=== PATIENT | male | born 1950 | race Caucasian/White ===

== ENCOUNTER 2022-09-19 13:25 | Inpatient (IN) | payer MEDICARE, SELFPAY ==
[2022-09-19] VITALS (16 sets, daily range): BP systolic 102–151; BP diastolic 61–94; PULSE 103–117; RESP 20–33; TEMP 35.7–36.8; O2SAT 93–97; BMI 32.1
--- NOTE | 2022-09-19 13:31 | ED.VIS.CHEST ---
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 He called EMS given the persistence of symptoms, when they arrived they did an EKG that they sent prehospital which was interpreted by myself as a STEMI, and an alert was called prior to the patient's arrival. EMS gave him 4 baby aspirin, Brilinta 180 mg, heparin 4000 mg prior to arrival as well as some IV fluids and Zofran. Patient states his discomfort is still significant, but a little better than it was earlier. No history of heart problems, does not take aspirin. He takes Dupixent but he does not know the diagnosis, he knows it has something to do with his kidneys. [facility] Medical History (Updated 09/19/22 @ 16:[address] Luiz Ma DO) CKD (chronic kidney disease), stage II High cholesterol Kidney disease Allergy/AdvReac Type Severity Reaction Status Date / Time cefaclor [From Ceclor] Allergy Other Verified 09/19/22 13:31 Family History (Updated 09/19/22 @ 16:[address] Luiz Ma DO) Father CAD (coronary artery disease) CVA (cerebral vascular accident) Social History (Updated 09/19/22 @ 16:[address] Liuz Ma DO) Smoking Status: Never smoker alcohol intake: current alcohol intake frequency: holidays/special occasions only substance use type: does not use ROS ROS ED Constitutional Constitutional ED: Reports sweats; Denies chills or fever(s) Eyes Eyes: Denies change in vision or diplopia ENT ENT ED: Denies rhinorrhea or sore throat Cardiovascular Cardiovascular: Reports as per HPI and chest pain; Denies palpitations Respiratory/Chest Respiratory/Chest: Reports dyspnea; Denies cough Gastrointestinal Gastrointestinal: Reports nausea; Denies abdominal pain, diarrhea or vomiting Genitourinary Genitourinary ED: Denies dysuria or hematuria Musculoskeletal Musculoskeletal: Reports neck pain; Denies back pain Integumentary Denies abscess or rash Neurologic Neurologic: Denies headache(s), paresthesias or weakness Psychiatric Psychiatric: Denies anxiety or suicidal thoughts EXAM Physical Exam Const Vital Signs: 09/19/22 13:26 09/19/22 13:31 09/19/22 13:34 Temperature 96.2 F L Temperature Source Temporal Pulse Rate Respiratory Rate 29 H Respiratory Pattern Normal Blood Pressure 151/94 H Blood Pressure Mean Blood Pressure Source Blood Pressure Position Blood Pressure Location Pulse Ox Oxygen Delivery Method 09/19/22 13:34 09/19/22 13:56 09/19/22 13:48 Temperature 97.1 F L Temperature Source Temporal Pulse Rate 113 H 113 H 113 H Respiratory Rate 21 H 24 H Respiratory Pattern Blood Pressure 147/94 H 147/94 H Blood Pressure Mean 111 111 Blood Pressure Source Blood Pressure Position Blood Pressure Location Pulse Ox Oxygen Delivery Method Room Air 09/19/22 15:28 Temperature Temperature Source Pulse Rate 109 H Respiratory Rate 20 H Respiratory Pattern Blood Pressure 127/87 H Blood Pressure Mean 100 Blood Pressure Source Monitor Blood Pressure Position Semi-Fowlers Blood Pressure Location Left Arm Pulse Ox 94 Oxygen Delivery Method Room Air Positive well nourished and well developed Constitutional Narrative: Well-appearing, conversive in full sentences General Appearance ED: well developed and NAD HEENT Reports moist mucous membranes normocephalic and atraumatic Eyes PERRL and EOMs intact bilaterally Neck full ROM and supple Chest Wall inspection of chest normal and palpation of chest normal Resp normal respiratory effort and clear to auscultation bilaterally Cardio regular rate, regular rhythm and no murmurs Rate: tachycardic Peripheral Pulses: radial pulses present bilateral 2+ GI non-tender and non-distended Auscultation: normoactive bowel sounds Palpation: soft Back/Spine no CVA tenderness General Back: other FROM Extremity normal to inspection General Extremety ED: Negative for edema, pulses abnormal or tenderness General Extremity: Negative for edema or pulses abnormal Neuro oriented x3, CN's II-XII intact bilaterally and no sensory deficits noted Sensorium / Orientation: awake and alert Motor Exam: strength 5/5 throughout Psych mental status grossly normal Skin no rashes or lesions noted and no wounds Heart Score History: Highly Suspicious ECG: Significant ST-Depression Age: >/= 65 years Risk Factors: 1 or 2 Risk Factors Troponin: </= Normal Limit Score: 7 MDM MDM MDM Narrative Medical decision making narrative: Discussed with Dr. Flores, who agrees given the patient's symptoms, will take directly to [facility] for further evaluation. Patient clinically and hemodynamically stable in the emergency department although his symptoms are significant. We will give him morphine for the pain and continue fluids. Lab Data Attestation: I reviewed the patient's lab results. Labs: Laboratory Results - last 24 hr 09/19/22 09/19/22 13:25 13:25 WBC 10.1 RBC 4.96 Hgb 13.6 Hct 41.4 MCV 83.5 MCH 27.4 MCHC 32.9 RDW Std Deviation 42.5 RDW Coeff of Goldie 14.1 Plt Count 209 MPV 9.5 Immature Gran % (Auto) 0.300 Neut % (Auto) 79.9 H Lymph % (Auto) 13.0 L [place] % (Auto) 6.1 Eos % (Auto) 0.4 Baso % (Auto) 0.3 Absolute Neuts (auto) 8.1 H Absolute Lymphs (auto) 1.32 Nucleated RBC % 0 Sodium 136 Potassium 3.8 Chloride 102 Carbon Dioxide 27.0 Anion Gap 7 BUN 21 H Creatinine 1.12 Estim Creat Clear Calc 53.39 Est GFR (MDRD) Af Amer 83 Est GFR (MDRD) Non-Af 69 BUN/Creatinine Ratio 18.8 Glucose 172 H Calcium 8.6 Troponin I High Sens 5 Radiography Chest X-Ray - ED: 1 View, Read by ED Physician, Normal, Heart, Lungs, Mediastinum, No Acute Disease and No Infiltrates Diagnostic Testing: Clinical Impression(s) from Imaging Studies Chest X-Ray 09/19/22 13:40 IMPRESSION: No acute cardiopulmonary process identified. Electronically Signed: Alayna Palacios MD at 13:57 EST , Chest X-Ray 09/19/22 15:25 IMPRESSION: No acute cardiopulmonary abnormality. No interval change. Electronically Signed: Nolberto Morales MD at 15:58 EST , Rhythm Strip Rhythm Strip: Sinus Tach Rate: 110 Ectopy: None EKG Initial EKG: Attestation: I personally reviewed and interpreted this EKG as follows: Interpretation: Sinus Tachycardia and S-T Elevation (Inferiorly) Comments: Unchanged compared with prehospital, but limited evaluation of V5-V6 here due to artifact Critical Care Time Critical Care Time: Yes Critical care time (excluding procedures): 30-74 minutes (35 min), Including time spent:, Discussing w/Patient &/or Family/Reconstructive Surgeon, Discussing w/Consultants, Arranging Admission or Transfer and Performing Direct Patient Care at Bedside Discharge Plan Dx/Rx/DC Orders Clinical Impression: ST elevation myocardial infarction (STEMI) of inferior wall Disposition Disposition: Acute Care Hospital [facility] Discharge Date/Time: 09/19/22 14:00
--- NOTE | 2022-09-19 13:40 | RAD_ITS ---
HISTORY: cp. TECHNIQUE: XR Chest 1 View. COMPARISON: None. FINDINGS: CARDIOMEDIASTINAL BORDERS: Cardiac silhouette within normal limits in size for hypoventilatory film. Mediastinal contour unremarkable. LUNGS: Low lung volumes with mild bibasilar atelectasis. Pacer pad over the right chest. PLEURA: No pleural effusion or pneumothorax seen. OSSEOUS STRUCTURES: Mild degenerative change. RAD/Chest 1 View (Portable) IMPRESSION: No acute cardiopulmonary process identified. Electronically Signed: Alayna Palacios MD at 13:57 EST ,
[2022-09-19] MEDS: Morphine 4 MG/ML Syringe IV (13:47)
--- NOTE | 2022-09-19 13:47 | EKG12_ITS ---
Test Reason : STEMI Blood Pressure : / mmHG Vent. Rate : 113 BPM Atrial Rate : 113 BPM P-R Int : 192 ms QRS Dur : 078 ms QT Int : 328 ms P-R-T Axes : 000 187 125 degrees QTc Int : 449 ms Sinus tachycardia Right superior axis deviation Abnormal ECG Confirmed by KATIE MANNING, ISHMAEL ([id number]), assignment editor ROBINA ANDINO ([id number]) on 09/23/2022 11:52:25 AM Referred By: Mitzy Flores Confirmed By:ISHMAEL WILSON MD
[2022-09-19 13:53] LABS: Absolute Lymphocyte Count 1.32 X10^3/uL (0.83-4.51); Absolute Neutrophil Count 8.1 X10^3/uL (2.0-7.7); Basophil# 0.03 X10^3/uL; Basophil% 0.3 % (0-1); Eosinophil# 0.04 X10^3/uL; Eosinophils% 0.4 % (0-5); Hematocrit 41.4 % (40-54); Hemoglobin 13.6 g/dL (13.0-16.5); Lymphocyte # 1.32 X10^3/ul (0.83-4.51); Mean Corp Hgb Conc 32.9 g/dL (32-36); Mean Corpuscular Hgb 27.4 pg (27.0-32.0); Mean Corpuscular Volume 83.5 fL (80-94); Mean Platelet Vol. 9.5 fl (6.2-12.0); Monocyte# 0.62 X10^3/uL; Monocyte% 6.1 % (0-10); NRBC Flagged by Analyzer 0 % (0-5); Neutrophil % 79.9 % (47-70); Platelet Count 209 K/mm3 (150-450); RBC Distribution Width CV 14.1 % (11.6-14.6); RBC Distribution Width SD 42.5 fl (35.1-43.9); Red Blood Count 4.96 M/mm3 (4.6-6.2); White Blood Count 10.1 K/mm3 (4.4-11.0)
[2022-09-19 14:07] LABS: Anion Gap 7 (5-15); BUN 21 mg/dL (7-18); BUN/Creat Ratio 18.8 RATIO (10-20); Calcium,Total 8.6 mg/dL (8.5-10.1); Chloride 102 mmol/L (98-107); Creatinine, Serum 1.12 mg/dL (0.70-1.30); EST Glomerular Filtration Rate 69 mL/min (>60); Est Glom Filt Rate - Afr Amer 83 mL/min (>60); Estimated Creatinine Clearance 53.39 ml/min; Glucose 172 mg/dL (74-106); Potassium 3.8 mmol/L (3.5-5.1); Sodium Level 136 mmol/L (136-145); Troponin-I HS 5 pg/mL (3.0-78.0)
--- NOTE | 2022-09-19 15:08 | CON.PCM.CA_ITS ---
Assessment & Plan Assessment/Plan (1) Chest pain: PLAN: Coronary angiography revealed mild CAD. Based on the EKG changes, chest pain and the angiographic findings it appears that patient is having acute pericarditis. Would recommend NSAIDs and also colchicine. 2D echo tomorrow. HPI Consult Data Date of Consult: 09/19/22 HPI Narrative HPI Narrative: ZIGGY AG, is a 72 M who presents with chest discomfort. It initially apparently started as some neck discomfort around 2-3 AM this morning and then he started having chest discomfort which is pressure-like and retrosternal. Thi s was not going away and eventually he called EMS. Patient does have worsening of chest pain with deep inspiration. EKG done by the paramedics was suspicious for inferior and lateral ST elevation TN. There was MA depression in inferior leads and MA elevation in aVR that was suggestive of pericarditis as well. However since inferior and lateral ST elevation TN could not be completely excluded and since patient was having significant pain he underwent coronary angiography which revealed mild CAD. EF was preserved with no significant regional wall motion abnormalities. Review of systems: All systems reviewed. All else is negative except as in HPI [facility] Medical History (Updated 09/19/22 @ 15:[address] Mitzy Flores MD) High cholesterol Allergy/AdvReac Type Severity Reaction Status Date / Time cefaclor [From Ceclor] Allergy Other Verified 09/19/22 13:31 Social History Smoking Status: Never smoker Physical Exam Const alert and oriented x3 HEENT normocephalic Eyes no scleral icterus Resp normal respiratory effort Cardio regular rate and regular rhythm Psych mental status grossly normal Risk Stratification Risk Stratification Applicable: No Charges/Coding Visit Charges Inpatient E&M: 46125 Init Hosp L2 Objective Data Vital Signs: Vital Signs Temp Pulse Resp BP O2 Del Method 97.1 F L 113 H 21 H 147/94 H Room Air 09/19/22 13:56 09/19/22 13:56 09/19/22 13:56 09/19/22 13:56 09/19/22 13:48 Oxygen Delivery Method Room Air Weight: 193 lb 1.999 oz Body Mass Index (BMI) 32.1 Lab / Micro Data Result Diagrams: 09/19/22 13:25 09/19/22 13:25 Labs: Laboratory Results - last 24 hr 09/19/22 13:25: WBC 10.1, RBC 4.96, Hgb 13.6, Hct 41.4, MCV 83.5, MCH 27.4, MCHC 32.9, RDW Std Deviation 42.5, RDW Coeff of Goldie 14.1, Plt Count 209, MPV 9.5, Immature Gran % (Auto) 0.300, Neut % (Auto) 79.9 H, Lymph % (Auto) 13.0 L, [place] % (Auto) 6.1, Eos % (Auto) 0.4, Baso % (Auto) 0.3, Absolute Neuts (auto) 8.1 H, Absolute Lymphs (auto) 1.32, Nucleated RBC % 0 09/19/22 13:25: Sodium 136, Potassium 3.8, Chloride 102, Carbon Dioxide 27.0, Anion Gap 7, BUN 21 H, Creatinine 1.12, Estim Creat Clear Calc 53.39, Est GFR (MDRD) Af Amer 83, Est GFR (MDRD) Non-Af 69, BUN/Creatinine Ratio 18.8, Glucose 172 H, Calcium 8.6, Troponin I High Sens 5 Rhythm Strip Rhythm Strip: Sinus Tach Rate: 110 Ectopy: None Cardiology Labs/Tests 09/19/22 13:25: WBC 10.1, RBC 4.96, Hgb 13.6, Hct 41.4, MCV 83.5, MCH 27.4, MCHC 32.9, Plt Count 209, MPV 9.5, Immature Gran % (Auto) 0.300, Neut % (Auto) 79.9 H , Lymph % (Auto) 13.0 L, [place] % (Auto) 6.1, Eos % (Auto) 0.4, Baso % (Auto) 0.3, Absolute Neuts (auto) 8.1 H, Nucleated RBC % 0 09/19/22 13:25: Sodium 136, Potassium 3.8, Chloride 102, Carbon Dioxide 27.0, Anion Gap 7, BUN 21 H, Creatinine 1.12, Est GFR (MDRD) Af Amer 83, Est GFR (MDRD) Non-Af 69, BUN/Creatinine Ratio 18.8, Glucose 172 H, Calcium 8.6 Rhythm: EKG: ECHO: Stress Test: Cardiac Cath: PCI: CT Surgery: Holter monitor: EPS: PPM: CXR: Chest CT Scan: Radiography Diagnostic Testing: Radiology Impression Chest X-Ray 09/19/22 13:40 IMPRESSION: No acute cardiopulmonary process identified. Electronically Signed: Alayna Palacios MD at 13:57 EST ,
--- NOTE | 2022-09-19 15:25 | RAD_ITS ---
EXAM: XR CHEST, 1 VIEW CLINICAL INDICATION: sob TECHNIQUE: Frontal view of the chest. This report was created using [employer] report generation technology. COMPARISON: XR Chest dated 09/19/2022 FINDINGS: LUNGS AND PLEURAL SPACES: Shallow inspiration. No airspace opacification. No pneumothorax. No effusion. HEART: Normal heart size. MEDIASTINUM: No mediastinal or hilar mass. BONES/JOINTS: No acute abnormality. SOFT TISSUES: Normal. RAD/Chest 1 View (Portable) IMPRESSION: No acute cardiopulmonary abnormality. No interval change. Electronically Signed: Nolberto Morales MD at 15:58 EST ,
--- NOTE | 2022-09-19 16:13 | PCM.HP.STD ---
HPI - General General Date of Admission: 09/19/22 Date of Service: 09/19/22 HPI Narrative ZIGGY AG, is a 72 M who presents chest pain. Symptoms began around 3 AM. It was midsternal. Just got worse throughout the day. Worse with taking in deep respirations. Presented to the emergency room and had what appeared to be ST elevations in the inferior leads. STEMI team was called. Patient did receive heparin, aspirin and Brilinta in the field. Patient went to the [facility] and had some minimal right coronary disease but nothing that warranted intervention. During the procedure the wire got tied up and required going through the groin to retrieve it. No clear complications were identified but Dr. Flores want to observe the patient in the intensive care unit in case any complications were latent and not immediately seen. [facility] Medical History (Updated 09/19/22 @ 16:[address] Luiz Ma DO) CKD (chronic kidney disease), stage II High cholesterol Kidney disease Allergy/AdvReac Type Severity Reaction Status Date / Time cefaclor [From Ceclor] Allergy Other Verified 09/19/22 13:31 Family History (Updated 09/19/22 @ 16:[address] Luiz Ma DO) Father CAD (coronary artery disease) CVA (cerebral vascular accident) Social History (Updated 09/19/22 @ 16:[address] Luiz Ma DO) Smoking Status: Never smoker alcohol intake: current alcohol intake frequency: holidays/special occasions only substance use type: does not use ROS ROS Narrative Neck was initially stiff preceding this. But denies any recent upper respiratory infection nor any fever or chills. No shortness of breath. All review of systems were negative except as mentioned above in the history of present illness and the other review of systems. Vital Signs Vital Signs Vital Signs: 09/19/22 13:26 09/19/22 13:31 09/19/22 13:34 Temperature 35.7 C L Temperature Source Temporal Pulse Rate Respiratory Rate 29 H Respiratory Pattern Normal Blood Pressure 151/94 H Blood Pressure Mean Oxygen Delivery Method 09/19/22 13:34 09/19/22 13:56 09/19/22 13:48 Temperature 36.2 C L Temperature Source Temporal Pulse Rate 113 H 113 H 113 H Respiratory Rate 21 H 24 H Respiratory Pattern Blood Pressure 147/94 H 147/94 H Blood Pressure Mean 111 111 Oxygen Delivery Method Room Air Weight Weight: 87.6 kg Body Mass Index (BMI) 32.1 Physical Exam Const alert Constitutional Narrative: Lying in bed. Take short shallow breaths because his chest hurts. No respiratory distress no conversational dyspnea Resp normal respiratory effort, no retractions, no use of accessory muscles and clear to auscultation bilaterally Cardio regular rate, regular rhythm, S1 normal heart sound and S2 normal heart sound Cardio Narrative: Diminished heart sounds throughout GI normal to inspection, nondistended, normoactive bowel sounds, soft to palpation, non-tender and non-distended Extremity normal to inspection and no clubbing, cyanosis or edema Extremity Narrative: Radial and dorsalis pedal pulses intact. Neuro Sensorium / Orientation: awake and alert Psych Mood & Affect: anxious Results Lab / Micro Data Attestation: I reviewed the patient's lab results. Result Diagrams: 09/19/22 13:25 09/19/22 13:25 Labs: Laboratory Results - last 24 hr 09/19/22 13:25: WBC 10.1, RBC 4.96, Hgb 13.6, Hct 41.4, MCV 83.5, MCH 27.4, MCHC 32.9, RDW Std Deviation 42.5, RDW Coeff of Goldie 14.1, Plt Count 209, MPV 9.5, Immature Gran % (Auto) 0.300, Neut % (Auto) 79.9 H, Lymph % (Auto) 13.0 L, [place] % (Auto) 6.1, Eos % (Auto) 0.4, Baso % (Auto) 0.3, Absolute Neuts (auto) 8.1 H, Absolute Lymphs (auto) 1.32, Nucleated RBC % 0 09/19/22 13:25: Sodium 136, Potassium 3.8, Chloride 102, Carbon Dioxide 27.0, Anion Gap 7, BUN 21 H, Creatinine 1.12, Estim Creat Clear Calc 53.39, Est GFR (MDRD) Af Amer 83, Est GFR (MDRD) Non-Af 69, BUN/Creatinine Ratio 18.8, Glucose 172 H, Calcium 8.6, Troponin I High Sens 5 Chest x-ray personally reviewed and showed no acute process, though poor inspiratory effort Rhythm Strip Rhythm Strip: Sinus Tach Rate: 110 Ectopy: None EKG Initial EKG: Attestation: I personally reviewed and interpreted this EKG as follows: Prior EKG tracings: available for review EKG Rhythm Intrepretation: Sinus Rhythm (Small ST elevation in the inferior leads with NC depressions) Radiology Impression Chest X-Ray 09/19/22 13:40 IMPRESSION: No acute cardiopulmonary process identified. Electronically Signed: Alayna Palacios MD at 13:57 EST , Chest X-Ray 09/19/22 15:25 IMPRESSION: No acute cardiopulmonary abnormality. No interval change. Electronically Signed: Nolberto Morales MD at 15:58 EST , Assessment & Plan Assessment/Plan (1) Pericarditis: PLAN: Cardiac catheterization was negative for coronary artery disease though minimal nonobstructive disease in the right coronary. Plan Start NSAIDs with ketorolac Starts colchicine 1 mg twice daily for the first 2 doses and then 0.6 mg twice daily Check echocardiogram With patient having just received IV contrast, will also give the patient IV fluids (2) Cardiac catheterization as the cause of abnormal reaction of the patient, or of later complication, without mention of misadventure at the time of the procedure: PLAN: Unclear if patient will have any issues in regards to having been access in his right radial and right femoral arteries. The catheter wire got tied up and then had to be pulled back with device. Patient tolerated that well and currently is hemodynamically stable. Patient to be monitored in the intensive care unit for the time being PLAN: Plan Chronic conditions Questionable psoriasis: Patient has pruritus on his back which she has been started on Dupixent. We will hold that for now. Chronic kidney disease stage II: Monitor closely with him having just had the contrast as well as being started on NSAIDs VTE prophylaxis with SCDs. Charges/Coding Visit Charges Inpatient E&M: 81860 Init Hosp L3
--- NOTE | 2022-09-19 16:17 | ECHOD_ITS ---
Reason For Study: Pericarditis Procedure This was a 2D Doppler, Color Flow transthoracic echocardiogram. Exam performed portable in ICU/CCU. Left Ventricle Normal LV size. Left ventricular systolic function is normal. The estimated ejection fraction is 60 %. No regional wall motion abnormalities noted. Right Ventricle Normal RV size. Normal systolic function. Atria Normal left atrium. Normal right atrium. Mitral Valve Normal mitral valve. Tricuspid Valve Normal tricuspid valve. Mild tricuspid valve insufficiency. Pulmonary artery systolic pressure is 30 mmHg. Aortic Valve The aortic valve is not well visualized. Pulmonic Valve The pulmonic valve is not well visualized. Great Vessels Normal aortic root. The pulmonary artery is normal size. Normal inferior vena cava. Pericardium/Pleural No pericardial effusion. MMode/2D Measurements & Calculations LVIDd: 4.4 cm IVSd: 1.0 cm Ao root diam: 3.3 cm LVIDs: 2.7 cm LVPWd: 0.93 cm RVDd: 3.5 cm FS: 38.9 % LAV(MOD-bp): 34.3 ml LVAd ap4: 24.5 cm2 SV(MOD-sp4): 37.2 ml LAV(MOD-bp) Indexed: 17.6 ml/m2 LVLd ap4: 8.1 cm LAV(MOD-sp2): 39.2 ml EDV(MOD-sp4): 60.8 ml LAV(MOD-sp4): 25.8 ml EDV(sp4-el): 63.1 ml LVAs ap4: 13.2 cm2 LVLs ap4: 6.2 cm ESV(MOD-sp4): 23.6 ml ESV(sp4-el): 24.1 ml EF(MOD-sp4): 61.2 % EF(sp4-el): 61.7 % SV(sp4-el): 38.9 ml LA A4 area: 11.7 cm2 LA dimension(2D): 4.4 cm RA A4 area: 9.3 cm2 Doppler Measurements & Calculations MV E max all: 82.9 cm/sec Lat Peak E' All: 7.7 cm/sec Med Peak E' All: 6.0 cm/sec MV A max all: 80.4 cm/sec E/E' lat: 10.8 E/E' med: 13.9 MV E/A: 1.0 Ao V2 max: 102.0 cm/sec LV V1 max: 97.3 cm/sec PA V2 max: 74.5 cm/sec Ao max P.2 mmHg LV V1 max P.8 mmHg Ao V2 mean: 78.6 cm/sec Ao mean P.7 mmHg Ao V2 VTI: 22.9 cm PI end-d all: 89.8 cm/sec TR max all: 251.2 cm/sec TR max P.2 mmHg ECHO/Echo Complete Interpretation Summary Normal LV size. Left ventricular systolic function is normal. The estimated ejection fraction is 60 %. No regional wall motion abnormalities noted. No pericardial effusion. Ordering Physician: Luiz Ma Referring Physician: Damian Hardy Performed By: Jessica Jones, ASHLEY, RVT
[2022-09-19] MEDS: Ketorolac 15 MG/ML Vial IV ×2 (17:15→23:40)
[2022-09-19] MEDS: 0.9% Normal Saline 1,000 ML 150 ML IV (17:15)
[2022-09-19] MEDS: Colchicine 0.6 MG TABLET 1.2 MG PO ×2 (17:16→21:38)
[2022-09-19] MEDS: oxyCODONE 5 MG Tablet PO (20:16)
[2022-09-19] MEDS: Acetaminophen 500 MG Tablet 1000 MG PO (21:38)
[2022-09-20] VITALS (16 sets, daily range): BP systolic 92–122; BP diastolic 61–74; PULSE 74–99; RESP 12–22; TEMP 35.9–36.6; O2SAT 93–98
[2022-09-20 03:24] LABS: Absolute Lymphocyte Count 1.22 X10^3/uL (0.83-4.51); Absolute Neutrophil Count 5.4 X10^3/uL (2.0-7.7); Basophil# 0.02 X10^3/uL; Basophil% 0.3 % (0-1); Eosinophil# 0.06 X10^3/uL; Eosinophils% 0.8 % (0-5); Hematocrit 34.2 % (40-54); Hemoglobin 11.6 g/dL (13.0-16.5); Lymphocyte # 1.22 X10^3/ul (0.83-4.51); Lymphocyte % 16.9 % (19-41); Mean Corp Hgb Conc 33.9 g/dL (32-36); Mean Corpuscular Volume 85.5 fL (80-94); Mean Platelet Vol. 9.1 fl (6.2-12.0); Monocyte# 0.53 X10^3/uL; Monocyte% 7.3 % (0-10); NRBC Flagged by Analyzer 0 % (0-5); Neutrophil # 5.37 X10^3/uL (2.7-7.7); Neutrophil % 74.4 % (47-70); Platelet Count 156 K/mm3 (150-450); RBC Distribution Width CV 14.4 % (11.6-14.6); RBC Distribution Width SD 44.7 fl (35.1-43.9); White Blood Count 7.2 K/mm3 (4.4-11.0)
[2022-09-20 03:33] LABS: Anion Gap 5 (5-15); BUN 24 mg/dL (7-18); BUN/Creat Ratio 18.8 RATIO (10-20); Calcium,Total 7.6 mg/dL (8.5-10.1); Chloride 107 mmol/L (98-107); Creatinine, Serum 1.28 mg/dL (0.70-1.30); EST Glomerular Filtration Rate 59 mL/min (>60); Est Glom Filt Rate - Afr Amer 71 mL/min (>60); Estimated Creatinine Clearance 46.71 ml/min; Glucose 172 mg/dL (74-106); Potassium 3.6 mmol/L (3.5-5.1); Sodium Level 137 mmol/L (136-145)
[2022-09-20] MEDS: Acetaminophen 500 MG Tablet 1000 MG PO ×2 (06:18→12:43)
[2022-09-20] MEDS: Ketorolac 15 MG/ML Vial IV ×2 (06:18→10:10)
--- NOTE | 2022-09-20 07:05 | PN.HOSP_ITS ---
Subjective Subjective Chest pain much improved. Objective Data Objective Data Vital Signs: Vital Signs Temp Pulse Resp BP Pulse Ox O2 Del Method 36.2 C L 79 17 97/63 97 Room Air 09/20/22 04:00 09/20/22 06:00 09/20/22 06:00 09/20/22 06:00 09/20/22 06:00 09/20/22 06:00 Oxygen Delivery Method Room Air Weight: 86.7 kg Body Mass Index (BMI) 32.1 Intake & Output: Intake and Output for Last 24 Hours 09/18/22 09/19/22 09/20/22 23:59 23:59 23:59 Intake Total 1860 / 1860 Output Total 0 / 0 Balance 186 / 186 0 / 0 Lab / Micro Data Result Diagrams: 09/20/22 03:10 09/20/22 03:10 Labs: Laboratory Results - last 24 hr 09/19/22 13:25: WBC 10.1, RBC 4.96, Hgb 13.6, Hct 41.4, MCV 83.5, MCH 27.4, MCHC 32.9, RDW Std Deviation 42.5, RDW Coeff of Goldie 14.1, Plt Count 209, MPV 9.5, Immature Gran % (Auto) 0.300, Neut % (Auto) 79.9 H, Lymph % (Auto) 13.0 L, [place] % (Auto) 6.1, Eos % (Auto) 0.4, Baso % (Auto) 0.3, Absolute Neuts (auto) 8.1 H, Absolute Lymphs (auto) 1.32, Nucleated RBC % 0 09/19/22 13:25: Sodium 136, Potassium 3.8, Chloride 102, Carbon Dioxide 27.0, Anion Gap 7, BUN 21 H, Creatinine 1.12, Estim Creat Clear Calc 53.39, Est GFR (MDRD) Af Amer 83, Est GFR (MDRD) Non-Af 69, BUN/Creatinine Ratio 18.8, Glucose 172 H, Calcium 8.6, Troponin I High Sens 5 09/20/22 03:10: WBC 7.2, RBC 4.00 L, Hgb 11.6 L, Hct 34.2 L, MCV 85.5, MCH 29.0, MCHC 33.9, RDW Std Deviation 44.7 H, RDW Coeff of Goldie 14.4, Plt Count 156, MPV 9.1, Immature Gran % (Auto) 0.300, Neut % (Auto) 74.4 H, Lymph % (Auto) 16.9 L, [place] % (Auto) 7.3, Eos % (Auto) 0.8, Baso % (Auto) 0.3, Absolute Neuts (auto) 5.4, Absolute Lymphs (auto) 1.22, Nucleated RBC % 0 09/20/22 03:10: Sodium 137, Potassium 3.6, Chloride 107, Carbon Dioxide 25.0, Anion Gap 5, BUN 24 H, Creatinine 1.28, Estim Creat Clear Calc 46.71, Est GFR (MDRD) Af Amer 71, Est GFR (MDRD) Non-Af 59 L, BUN/Creatinine Ratio 18.8, Glucose 172 H, Calcium 7.6 L Radiography Diagnostic Testing: Radiology Impression Chest X-Ray 09/19/22 13:40 IMPRESSION: No acute cardiopulmonary process identified. Electronically Signed: Alayna Palacios MD at 13:57 EST , Chest X-Ray 09/19/22 15:25 IMPRESSION: No acute cardiopulmonary abnormality. No interval change. Electronically Signed: Nolberto Morales MD at 15:58 EST , Rhythm Strip Rhythm Strip: Sinus Tach Rate: 110 Ectopy: None Physical Exam Const alert and no apparent distress Resp normal respiratory effort, no retractions, no use of accessory muscles and clear to auscultation bilaterally Cardio regular rate, regular rhythm, S1 normal heart sound and S2 normal heart sound Assessment & Plan Assessment/Plan (1) Pericarditis: PLAN: Cardiac catheterization was negative for coronary artery disease though minimal nonobstructive disease in the right coronary. echo unremarkable. Plan * Start NSAIDs with ketorolac * Starts colchicine 1 mg twice daily for the first 2 doses and then 0.6 mg twice daily * Check echocardiogram * With patient having just received IV contrast, will also give the patient IV fluids * NINA mims. Discharge with cardiology. 2 weeks of indocin and and colchicine. (2) Cardiac catheterization as the cause of abnormal reaction of the patient, or of later complication, without mention of misadventure at the time of the procedure: PLAN: Unclear if patient will have any issues in regards to having been access in his right radial and right femoral arteries. The catheter wire got tied up and then had to be pulled back with device. Patient tolerated that well and currently is hemodynamically stable. Patient to be monitored in the intensive care unit for the time being PLAN: Plan Chronic conditions * possible psoriasis: Patient has pruritus on his back which she has been started on Dupixent. We will hold that for now. * Chronic kidney disease stage II: Monitor closely with him having just had the contrast as well as being started on NSAIDs VTE prophylaxis with SCDs.
[2022-09-20] MEDS: Colchicine 0.6 MG TABLET 1.2 MG PO (08:19)
--- NOTE | 2022-09-20 09:50 | CASEMGMT ---
RN CM Face to Face with patient for initial transition planning/care coordination assessment. RN CM introduced self and role at [facility]. Patient lying in bed, alert and oriented. Patient willing to participate in assessment and is able to answer all questions appropriately. Care providers, pharmacy, and demographics verified. Patient wishes to discharge home, denies need for home health at this time. Patient states he has no further needs or concerns at this time. CM to follow for discharge planning needs that may arise. 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 Patient states he is independent at home. Transportation: self, sisters, son DME/HHC: Patient has cane, grab bars, walker, and cpap at home. No previous HHC or SNF. Disposition Plan: Patient to discharge home with family support and follow-up plans in place. Alyssa NGUYỄN, RN, CM
[2022-09-20] MEDS: Pantoprazole Sodium 40 MG Tablet PO (10:07)
--- NOTE | 2022-09-20 10:28 | CL.D_ITS ---
Patient Name: ZIGGY AG Study Date: 09/19/2022 Performing: Atul Flores MD Ht: 65 inches 165.1 cm : 1950 Wt: 193.4 lbs 87.6 kg Age: 72 Gender: male BSA: 1.95 PROCEDURE(S) PERFORMED DC01-(19907)LHC/COR/LV CLINICAL PROFILE AND INDICATIONS Indications: Chest pain, suspected STEMI Heart Failure: None Stress/Imaging Stress/Image Study Performed: No CONCLUSIONS Mild coronary artery disease as described. Preserved LV function. No significant aortic stenosis or mitral regurgitation. RECOMMENDATIONS DESCRIPTION OF PROCEDURE The patient arrived to the procedure lab. The risks and benefits of the procedure as well as a full description of our services here and current unavailability of surgical backup were fully explained to the patient and/or their significant other prior to the catheterization. The Timeout was completed, verifying the correct patient and procedure. The patient's procedural site was prepped and draped in the usual fashion. Local anesthetic was given subcutaneously to right radial region with Lidocaine 2%. Local anesthetic was given subcutaneously to right groin region with Lidocaine 2%. Using a modified Seldinger technique, arterial access was obtained via the right radial artery, a 6Fr sheath was inserted., arterial access was obtained via the right femoral artery, a 6Fr sheath was inserted. Right Coronary Artery selective angiography was then performed in multiple views using a 6 Fr. JR 4 catheter. Left Coronary Artery selective angiography was performed in multiple views using a 6 Fr. JL4 catheter. Left Ventriculography was performed in LAURENT projection using a 5 Fr. Pigtail catheter. LV to AO pullback pressures were then recorded.Contrast was injected through the sheath and the Right Iliac and Femoral artery were assessed for possible closure device.The femoral arterial sheath was pulled and a Starclose closure device was deployed for hemostasis. The radial arterial sheath was pulled and a TR Band was applied for hemostasis. 10cc air inserted. CORONARY ANGIOGRAPHY DOMINANCE: Right Dominant LEFT HEART ASSESSMENT Left Ventricular Ejection Fraction: by LV Gram 55 % Normal LV wall motion JR4 catheter during manipulation developed kinks into places and also formed a loop that would not straighten out with regular manipulation. The J-wire and the Glidewire did not go past the kinks. We had to complete the coronary angiography through the right groin approach and then used loop snare inserted through the multipurpose guide to snare the catheter from the groin and gently pull and counterclockwise rotate from the arm to straighten the JR4 catheter. After this we were able to pass J-wire and remove the catheter without any difficulty. LEFT MAIN: Mild luminal irregularities LEFT ANTERIOR DESCENDING ARTERY: PROX LAD: 30 % Stenosis. 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 DIAGONAL 2: Ostial - 30 % Stenosis CIRCUMFLEX ARTERY: Mild luminal irregularities RIGHT CORONARY ARTERY: MID RCA: 30-40 % Stenosis VALVE FINDINGS: No Aortic Valve Stenosis No Mitral Insufficency COMPLICATIONS No Complications PROCEDURE MEDICATIONS Oxygen: 2 L/min via nasal cannula Heparin given IA 09/19/2022 14:07:40 Verapamil 2.5mg, Ntg 100mcgs, 3000 units of Heparin given IA 09/19/2022 14:07:40 SUMMARY OF HEMODYNAMIC DATA Time AIR REST ECG 13:56:14 AO 97/59 (77) SA 14:09:34 LV 121/3, 16 14:48:43 LV 121/0, 15 14:48:51 LV 124/6, 19 14:49:53 LVp 121/4, 18 14:49:59 AOp 126/72 (91) 14:50:06 Signed By Atul Flores MD On 09/20/2022 10:27:51 Atul Flores MD
--- NOTE | 2022-09-20 11:14 | PN.CARD_ITS ---
Subjective Subjective Patient seen and evaluated. Appears to be doing well. Still has occasional chest discomfort when he takes in a deep breath. Objective Data Vital Signs: Vital Signs Temp Pulse Resp BP Pulse Ox O2 Del Method 97.9 F 76 16 96/70 95 Room Air 09/20/22 09:00 09/20/22 10:00 09/20/22 10:00 09/20/22 10:00 09/20/22 10:00 09/20/22 10:00 Oxygen Delivery Method Room Air Weight: 191 lb 2.252 oz Body Mass Index (BMI) 32.1 Intake & Output: Intake and Output for Last 24 Hours 09/18/22 09/19/22 09/20/22 23:59 23:59 23:59 Intake Total 1860 / 1860 Output Total 0 / 0 Balance 186 / 1859 0 / 0 Lab / Micro Data Result Diagrams: 09/20/22 03:10 09/20/22 03:10 Labs: Laboratory Results - last 24 hr 09/19/22 13:25: WBC 10.1, RBC 4.96, Hgb 13.6, Hct 41.4, MCV 83.5, MCH 27.4, MCHC 32.9, RDW Std Deviation 42.5, RDW Coeff of Goldie 14.1, Plt Count 209, MPV 9.5, Immature Gran % (Auto) 0.300, Neut % (Auto) 79.9 H, Lymph % (Auto) 13.0 L, [place] % (Auto) 6.1, Eos % (Auto) 0.4, Baso % (Auto) 0.3, Absolute Neuts (auto) 8.1 H, Absolute Lymphs (auto) 1.32, Nucleated RBC % 0 09/19/22 13:25: Sodium 136, Potassium 3.8, Chloride 102, Carbon Dioxide 27.0, Anion Gap 7, BUN 21 H, Creatinine 1.12, Estim Creat Clear Calc 53.39, Est GFR (MDRD) Af Amer 83, Est GFR (MDRD) Non-Af 69, BUN/Creatinine Ratio 18.8, Glucose 172 H, Calcium 8.6, Troponin I High Sens 5 09/20/22 03:10: WBC 7.2, RBC 4.00 L, Hgb 11.6 L, Hct 34.2 L, MCV 85.5, MCH 29.0, MCHC 33.9, RDW Std Deviation 44.7 H, RDW Coeff of Goldie 14.4, Plt Count 156, MPV 9.1, Immature Gran % (Auto) 0.300, Neut % (Auto) 74.4 H, Lymph % (Auto) 16.9 L, [place] % (Auto) 7.3, Eos % (Auto) 0.8, Baso % (Auto) 0.3, Absolute Neuts (auto) 5.4, Absolute Lymphs (auto) 1.22, Nucleated RBC % 0 09/20/22 03:10: Sodium 137, Potassium 3.6, Chloride 107, Carbon Dioxide 25.0, Anion Gap 5, BUN 24 H, Creatinine 1.28, Estim Creat Clear Calc 46.71, Est GFR (MDRD) Af Amer 71, Est GFR (MDRD) Non-Af 59 L, BUN/Creatinine Ratio 18.8, Glucose 172 H, Calcium 7.6 L Rhythm Strip Rhythm Strip: Sinus Tach Rate: 110 Ectopy: None Cardiology Labs/Tests 09/19/22 13:25: WBC 10.1, RBC 4.96, Hgb 13.6, Hct 41.4, MCV 83.5, MCH 27.4, MCHC 32.9, Plt Count 209, MPV 9.5, Immature Gran % (Auto) 0.300, Neut % (Auto) 79.9 H , Lymph % (Auto) 13.0 L, [place] % (Auto) 6.1, Eos % (Auto) 0.4, Baso % (Auto) 0.3, Absolute Neuts (auto) 8.1 H, Nucleated RBC % 0 09/19/22 13:25: Sodium 136, Potassium 3.8, Chloride 102, Carbon Dioxide 27.0, Anion Gap 7, BUN 21 H, Creatinine 1.12, Est GFR (MDRD) Af Amer 83, Est GFR (MDRD) Non-Af 69, BUN/Creatinine Ratio 18.8, Glucose 172 H, Calcium 8.6 09/20/22 03:10: WBC 7.2, RBC 4.00 L, Hgb 11.6 L, Hct 34.2 L, MCV 85.5, MCH 29.0, MCHC 33.9, Plt Count 156, MPV 9.1, Immature Gran % (Auto) 0.300, Neut % (Auto) 74.4 H, Lymph % (Auto) 16.9 L, [place] % (Auto) 7.3, Eos % (Auto) 0.8, Baso % (Auto) 0.3, Absolute Neuts (auto) 5.4, Nucleated RBC % 0 09/20/22 03:10: Sodium 137, Potassium 3.6, Chloride 107, Carbon Dioxide 25.0, Anion Gap 5, BUN 24 H, Creatinine 1.28, Est GFR (MDRD) Af Amer 71, Est GFR (MDRD) Non-Af 59 L, BUN/Creatinine Ratio 18.8, Glucose 172 H, Calcium 7.6 L Rhythm: EKG: ECHO: Stress Test: Cardiac Cath: PCI: CT Surgery: Holter monitor: EPS: PPM: CXR: Chest CT Scan: Radiography Diagnostic Testing: Radiology Impression Chest X-Ray 09/19/22 13:40 IMPRESSION: No acute cardiopulmonary process identified. Electronically Signed: Alayna Palacios MD at 13:57 EST , Chest X-Ray 09/19/22 15:25 IMPRESSION: No acute cardiopulmonary abnormality. No interval change. Electronically Signed: Nolberto Morales MD at 15:58 EST , Echocardiogram 09/19/22 16:17 Interpretation Summary Normal LV size. Left ventricular systolic function is normal. The estimated ejection fraction is 60 %. No regional wall motion abnormalities noted. No pericardial effusion. Ordering Physician: Luiz Ma Referring Physician: Damian Hardy Performed By: Jessica Jones, ASHLEY, RVT Physical Exam Const alert, oriented x3 and no apparent distress General Appearance: cooperative HEENT hearing grossly normal bilaterally Head and Scalp: atraumatic Eyes EOMs intact bilaterally Neck General: normal visual inspection Chest inspection of chest normal and palpation of chest normal Resp normal respiratory effort Auscultation: clear to auscultation bilaterally Cardio regular rate, regular rhythm, S1 normal heart sound and S2 normal heart sound Jugular Venous Distention: JVD GI normal to inspection, nondistended, normoactive bowel sounds Extremity normal capillary refill and no pedal edema Peripheral Pulses: Yes pulses 2+ throughout and femoral pulses present Skin no rashes or lesions noted Neuro oriented x3 and CN's II-XII intact bilaterally Psych Appearance: grossly normal and appropriate Assessment & Plan Assessment/Plan (1) Chest pain: PLAN: Patient presented with chest discomfort which appeared to be noncoronary in origin. There is a suggestion as to whether this was inflammatory in origin. At this particular time the echocardiogram demonstrates preserved ejection fraction with no significant pericardial effusion. * Would recommend treating patient with a nonsteroidal anti-inflammatory agent as well as colchicine for 2 weeks. We will follow-up as an outpatient. * * Thank you for allowing me to participate in the care of your patient. Please don't hesitate to call if any issues arise.
--- NOTE | 2022-09-20 11:22 | DCINST_ITS ---
Discharge Instructions Diet Discharge Diet: No restrictions Dressing / Incision Call your doctor if you observe: Shortness of breath and Chest pain (worsening. ) Follow Up Care Test Results: Test results from this visit will be discussed in further detail at your follow- up appointment, if applicable. Discharge Plan Admission Admit Date/Time: 09/19/22 16:04 Primary Reason for Your Visit: Pericarditis Attending Provider: Luiz Ma Primary Care Provider: Damian Hardy Consulting Providers: Mitzy Flores Discharge Orders/Prescriptions Prescriptions: New acetaminophen 500 mg Tablet 1,000 mg PO Q8 PRN (Reason: pain) Qty: 30 0RF indomethacin 25 mg Capsule 25 mg PO TIDCM Qty: 28 0RF colchicine 0.6 mg Capsule 0.6 mg PO BID Qty: 28 0RF pantoprazole 40 mg Tablet,Delayed Release (Dr/Ec) 40 mg PO DAILY Qty: 14 0RF Referrals / Follow Up: [facility] [Provider Group] - Within 2 Weeks Damian Hardy MD [Primary Care Provider] - Within 2 Weeks Disposition Disposition (needs filled in before D/C Order can be placed): Home, Self Care
--- NOTE | 2022-09-20 11:28 | DS.PCM_ITS ---
Providers Date of Admission: 09/19/22 Primary Care Physician: Damian Hardy MD Consultations 09/19/22 16:29 Consult: Cardiology Routine Consulting Provider: Mitzy Flores Reason for Consult: pericarditis EMERGENT Consult: No MD Notified: Yes Date Notified: 09/19/22 Time Notified: 16:09 Method of Notification: Verbal Reason For Visit: PERICARDITIS Diagnosis Discharge Diagnosis (1) Pericarditis: Status: Acute Code(s): I31.9 - Disease of pericardium, unspecified Plan: Cardiac catheterization was negative for coronary artery disease though minimal nonobstructive disease in the right coronary. echo unremarkable. Plan * Start NSAIDs with ketorolac * Starts colchicine 1 mg twice daily for the first 2 doses and then 0.6 mg twice daily * Check echocardiogram * With patient having just received IV contrast, will also give the patient IV fluids * NINA mims. Discharge with cardiology. 2 weeks of indocin and and colchicine. Is on indomethacin, will be on PPI therapy. (2) Cardiac catheterization as the cause of abnormal reaction of the patient, or of later complication, without mention of misadventure at the time of the procedure: Status: Acute Code(s): Y84.0 - Cardiac catheterization as the cause of abnormal reaction of the patient, or of later complication, without mention of misadventure at the time of the procedure Plan: Unclear if patient will have any issues in regards to having been access in his right radial and right femoral arteries. The catheter wire got tied up and then had to be pulled back with device. Patient tolerated that well and currently is hemodynamically stable. Patient to be monitored in the intensive care unit for the time being Plan Chronic conditions * possible psoriasis: Patient has pruritus on his back which she has been started on Dupixent. We will hold that for now. * Chronic kidney disease stage II: Monitor closely with him having just had the contrast as well as being started on NSAIDs VTE prophylaxis with SCDs. Medications at Discharge Home Medications acetaminophen 500 mg tablet 1,000 mg PO Q8 PRN pain #30 tabs 09/20/22 colchicine 0.6 mg capsule 0.6 mg PO BID #28 caps 09/20/22 indomethacin 25 mg capsule 25 mg PO TIDCM #28 caps 09/20/22 pantoprazole 40 mg tablet,delayed release 40 mg PO DAILY #14 tabs 09/20/22 Hospital Course Operations None Procedures 2-D Echocardiogram and Cardiac catheterization Summary of Care Provided Minutes Spent on Discharge: 28 Weight / BMI Weight Weight: 86.7 kg Body Mass Index (BMI) 32.1 ABG / Lab / Microbiology Data Result Diagrams: 09/20/22 03:10 09/20/22 03:10 Laboratory: Laboratory Results - last 24 hr 09/19/22 13:25: WBC 10.1, RBC 4.96, Hgb 13.6, Hct 41.4, MCV 83.5, MCH 27.4, MCHC 32.9, RDW Std Deviation 42.5, RDW Coeff of Goldie 14.1, Plt Count 209, MPV 9.5, I mmature Gran % (Auto) 0.300, Neut % (Auto) 79.9 H, Lymph % (Auto) 13.0 L, [place] % (Auto) 6.1, Eos % (Auto) 0.4, Baso % (Auto) 0.3, Absolute Neuts (auto) 8.1 H, Absolute Lymphs (auto) 1.32, Nucleated RBC % 0 09/19/22 13:25: Sodium 136, Potassium 3.8, Chloride 102, Carbon Dioxide 27.0, Anion Gap 7, BUN 21 H, Creatinine 1.12, Estim Creat Clear Calc 53.39, Est GFR (MDRD) Af Amer 83, Est GFR (MDRD) Non-Af 69, BUN/Creatinine Ratio 18.8, Glucose 172 H, Calcium 8.6, Troponin I High Sens 5 09/20/22 03:10: WBC 7.2, RBC 4.00 L, Hgb 11.6 L, Hct 34.2 L, MCV 85.5, MCH 29.0, MCHC 33.9, RDW Std Deviation 44.7 H, RDW Coeff of Goldie 14.4, Plt Count 156, MPV 9.1, Immature Gran % (Auto) 0.300, Neut % (Auto) 74.4 H, Lymph % (Auto) 16.9 L, [place] % (Auto) 7.3, Eos % (Auto) 0.8, Baso % (Auto) 0.3, Absolute Neuts (auto) 5.4, Absolute Lymphs (auto) 1.22, Nucleated RBC % 0 09/20/22 03:10: Sodium 137, Potassium 3.6, Chloride 107, Carbon Dioxide 25.0, Anion Gap 5, BUN 24 H, Creatinine 1.28, Estim Creat Clear Calc 46.71, Est GFR (MDRD) Af Amer 71, Est GFR (MDRD) Non-Af 59 L, BUN/Creatinine Ratio 18.8, Glucose 172 H, Calcium 7.6 L Radiography Diagnostic Testing: Radiology Impression Chest X-Ray 09/19/22 13:40 IMPRESSION: No acute cardiopulmonary process identified. Electronically Signed: Alayna Palacios MD at 13:57 EST , Chest X-Ray 09/19/22 15:25 IMPRESSION: No acute cardiopulmonary abnormality. No interval change. Electronically Signed: Nolberto Morales MD at 15:58 EST , Echocardiogram 09/19/22 16:17 Interpretation Summary Normal LV size. Left ventricular systolic function is normal. The estimated ejection fraction is 60 %. No regional wall motion abnormalities noted. No pericardial effusion. Ordering Physician: Luiz Ma Referring Physician: Damian Hardy Performed By: Jessica Jones, ASHLEY, RVT D/C Instructions Discharge Diet: No restrictions Call your doctor if you observe: Shortness of breath and Chest pain (worsening. ) Meaningful Use Info Meaningful Use Diagnoses (Choose all that apply): None applicable Discharge Plan Admission Admit Date/Time: 09/19/22 16:04 Primary Reason for Your Visit: Pericarditis Attending Provider: Luiz Ma Primary Care Provider: Damian Hardy Consulting Providers: Mitzy Flores Discharge Orders/Prescriptions Prescriptions: New acetaminophen 500 mg Tablet 1,000 mg PO Q8 PRN (Reason: pain) Qty: 30 0RF indomethacin 25 mg Capsule 25 mg PO TIDCM Qty: 28 0RF colchicine 0.6 mg Capsule 0.6 mg PO BID Qty: 28 0RF pantoprazole 40 mg Tablet,Delayed Release (Dr/Ec) 40 mg PO DAILY Qty: 14 0RF Referrals / Follow Up: [facility] [Provider Group] - Within 2 Weeks Damian Hardy MD [Primary Care Provider] - Within 2 Weeks Disposition Disposition (needs filled in before D/C Order can be placed): Home, Self Care Charges/Coding Visit Charges Inpatient E&M: 29810 Disch Hosp
[2022-09-20] MEDS: Indomethacin 25 MG Capsule PO (12:42)
[2022-09-20] MEDS: Ondansetron 4 MG/2 ML Vial IV (14:00)
== END 2022-09-20 15:15 | disposition home or self-care (01) | DRG 287 ==
LOC: ED 13:50 → ICU 17:36
PROVIDERS: Emergency Provider Emergency Medicine; PCP Internal Medicine; Referring Provider Specialist
DX: I30.9 Acute pericarditis, unspecified (principal); E78.00 Pure hypercholesterolemia, unspecified; I25.10 Atherosclerotic heart disease of native coronary artery without angina pectoris; N18.2 Chronic kidney disease, stage 2 (mild); L40.9 Psoriasis, unspecified; Z79.899 Other long term (current) drug therapy
CPT/HCPCS: 37197; 71045; 80048; 84484; 85025; 93005; 93306; 93458; 99285; J7030; J7040; Q9957; A4216; C1760; C1769; C1773; C1894; J2405; Q9967

== ENCOUNTER → 2022-09-30 | Outpatient (CLI) | payer MEDICARE, SELFPAY ==
[2022-09-30 15:28] LABS: Absolute Lymphocyte Count 1.14 X10^3/uL (0.83-4.51); Absolute Neutrophil Count 2.9 X10^3/uL (2.0-7.7); Basophil# 0.04 X10^3/uL; Basophil% 0.9 % (0-1); Eosinophil# 0.17 X10^3/uL; Eosinophils% 3.8 % (0-5); Hematocrit 35.2 % (40-54); Hemoglobin 12.1 g/dL (13.0-16.5); Lymphocyte # 1.14 X10^3/ul (0.83-4.51); Lymphocyte % 25.2 % (19-41); Mean Corp Hgb Conc 34.4 g/dL (32-36); Mean Corpuscular Hgb 28.5 pg (27.0-32.0); Mean Corpuscular Volume 82.8 fL (80-94); Mean Platelet Vol. 9.2 fl (6.2-12.0); Monocyte# 0.29 X10^3/uL; Monocyte% 6.4 % (0-10); NRBC Flagged by Analyzer 0 % (0-5); Neutrophil # 2.86 X10^3/uL (2.7-7.7); Neutrophil % 63.3 % (47-70); Platelet Count 174 K/mm3 (150-450); RBC Distribution Width CV 14.3 % (11.6-14.6); RBC Distribution Width SD 42.5 fl (35.1-43.9); Red Blood Count 4.25 M/mm3 (4.6-6.2); White Blood Count 4.5 K/mm3 (4.4-11.0)
[2022-09-30 16:03] LABS: BNP,B-Type NATRIURETIC PEPTIDE 167.5 pg/mL (0-100)
[2022-09-30 16:04] LABS: Anion Gap 4 (5-15); BUN 18 mg/dL (7-18); BUN/Creat Ratio 17.6 RATIO (10-20); Calcium,Total 8.4 mg/dL (8.5-10.1); Chloride 107 mmol/L (98-107); Creatinine, Serum 1.02 mg/dL (0.70-1.30); EST Glomerular Filtration Rate 77 mL/min (>60); Est Glom Filt Rate - Afr Amer 93 mL/min (>60); Glucose 104 mg/dL (74-106); Potassium 3.5 mmol/L (3.5-5.1); Sodium Level 139 mmol/L (136-145)
== END | disposition home or self-care (01) ==
LOC: LAB 14:41
PROVIDERS: PCP Internal Medicine; Visit Provider Nurse Practitioner Gerontology
DX: R06.09 Other forms of dyspnea (principal)
CPT/HCPCS: 36415; 80048; 83880; 84443; 85025

== ENCOUNTER → 2022-10-08 | Outpatient (CLI) | payer MEDICARE, SELFPAY ==
[2022-10-08 11:41] LABS: Anion Gap 3 (5-15); BUN 17 mg/dL (7-18); Calcium,Total 8.5 mg/dL (8.5-10.1); Chloride 106 mmol/L (98-107); Creatinine, Serum 1.13 mg/dL (0.70-1.30); EST Glomerular Filtration Rate 68 mL/min (>60); Est Glom Filt Rate - Afr Amer 83 mL/min (>60); Glucose 133 mg/dL (74-106); Potassium 3.8 mmol/L (3.5-5.1); Sodium Level 138 mmol/L (136-145)
== END | disposition home or self-care (01) ==
LOC: LAB 10:37
PROVIDERS: PCP Internal Medicine; Referring Provider Nurse Practitioner Gerontology; Visit Provider Nurse Practitioner Gerontology
DX: R06.09 Other forms of dyspnea (principal)
CPT/HCPCS: 36415; 80048

== ENCOUNTER → 2023-01-01 | Outpatient (CLI) | payer OTHER, SELFPAY ==
[2023-01-01 14:09] LABS: BNP,B-Type NATRIURETIC PEPTIDE 26.9 pg/mL (0-100)
[2023-01-01 14:11] LABS: Anion Gap 7 (5-15); BUN 14 mg/dL (7-18); BUN/Creat Ratio 11.4 RATIO (10-20); Calcium,Total 8.9 mg/dL (8.5-10.1); Chloride 104 mmol/L (98-107); Creatinine, Serum 1.23 mg/dL (0.70-1.30); EST Glomerular Filtration Rate 62 mL/min (>60); Est Glom Filt Rate - Afr Amer 75 mL/min (>60); Glucose 100 mg/dL (74-106); Potassium 3.6 mmol/L (3.5-5.1); Sodium Level 137 mmol/L (136-145)
== END | disposition home or self-care (01) ==
LOC: LAB 13:25
PROVIDERS: PCP Internal Medicine; Referring Provider Nurse Practitioner Gerontology; Visit Provider Nurse Practitioner Gerontology
DX: R06.09 Other forms of dyspnea (principal)
CPT/HCPCS: 36415; 80048; 83880

== ENCOUNTER → 2023-01-28 | Outpatient (CLI) | payer MEDICARE, SELFPAY ==
--- NOTE | 2023-01-29 09:56 | PFT ---
INTRODUCTION: The patient is a 72-year-old male that presents for pulmonary function studies secondary to a diagnosis of shortness of breath. Respiratory therapy reported good patient effort. Bronchodilators were used during testing. INTERPRETATION: Forced expiration spirometry demonstrates no evidence of a large airways obstructive ventilatory defect. There was no significant response to aerosolized bronchodilators. Spirograms are of good quality and plateau normally. Body plethysmography was performed and revealed a decreased TLC to 3.8 L, 71% of predicted, indicative of a mild restrictive ventilatory impairment. The remainder of the lung volumes are symmetrically reduced. Diffusing capacity by single breath CO was within normal limits. IMPRESSION: Isolated mild restrictive ventilatory defect with preserved diffusing capacity.
== END | disposition home or self-care (01) ==
LOC: PSN 12:31
PROVIDERS: PCP Internal Medicine; Visit Provider Nurse Practitioner Gerontology
DX: R06.09 Other forms of dyspnea (principal)
CPT/HCPCS: 94060; 94726; 94729

== ENCOUNTER → 2023-07-07 | Outpatient (CLI) | payer MEDICARE, SELFPAY ==
[2023-07-07 13:26] LABS: AST(SGOT) 14 U/L (15-37); Alanine Aminotransfer ALT/SGPT 21 U/L (16-61); Anion Gap 6 (5-15); BUN 11 mg/dL (7-18); BUN/Creat Ratio 9.3 RATIO (10-20); CPK Total, Creatine Kinase 37 U/L (39-308); Calcium,Total 8.6 mg/dL (8.5-10.1); Chloride 106 mmol/L (98-107); Cholesterol 103 mg/dL (200); Creatinine, Serum 1.18 mg/dL (0.70-1.30); EST Glomerular Filtration Rate 65 mL/min (>60); Est Glom Filt Rate - Afr Amer 78 mL/min (>60); Glucose 104 mg/dL (74-106); High Density Lipoprotein 22 mg/dL; Potassium 3.9 mmol/L (3.5-5.1); Sodium Level 139 mmol/L (136-145); Triglycerides 153 mg/dL; Very Low Density Lipoprotein 31 mg/dL (5-40)
== END | disposition home or self-care (01) ==
LOC: LAB 11:28
PROVIDERS: PCP Internal Medicine; Referring Provider Internal Medicine Cardiovascular Disease; Visit Provider Internal Medicine Cardiovascular Disease
DX: E78.5 Hyperlipidemia, unspecified (principal); I25.10 Atherosclerotic heart disease of native coronary artery without angina pectoris; I31.9 Disease of pericardium, unspecified; I10 Essential (primary) hypertension
CPT/HCPCS: 36415; 80048; 80061; 82550; 84450; 84460

== ENCOUNTER → 2024-02-19 | Outpatient (CLI) | payer MEDICARE, SELFPAY ==
[2024-02-19 12:55] LABS: ALB/GLOB Ratio 0.7 RATIO (0.9-2.4); AST(SGOT) 17 U/L (15-37); Alanine Aminotransfer ALT/SGPT 22 U/L (16-61); Albumin, Serum 3.3 g/dL (3.2-5.0); Alkaline Phosphatase 139 U/L (45-117); Anion Gap 5 (5-15); BUN 12 mg/dL (7-18); BUN/Creat Ratio 8.9 RATIO (10-20); CPK Total, Creatine Kinase 42 U/L (39-308); Calcium,Total 8.5 mg/dL (8.5-10.1); Chloride 105 mmol/L (98-107); Cholesterol 135 mg/dL (200); Creatinine, Serum 1.35 mg/dL (0.70-1.30); EST Glomerular Filtration Rate 55 mL/min (>60); Est Glom Filt Rate - Afr Amer 67 mL/min (>60); Globulin 4.6 g/dL (2.2-4.2); Glucose 122 mg/dL (74-106); High Density Lipoprotein 25 mg/dL; Potassium 3.9 mmol/L (3.5-5.1); Protein, Total 7.9 g/dL (6.4-8.2); Sodium Level 138 mmol/L (136-145); Triglycerides 245 mg/dL; Very Low Density Lipoprotein 49 mg/dL (5-40)
== END | disposition home or self-care (01) ==
PROVIDERS: PCP Internal Medicine; Referring Provider Internal Medicine Cardiovascular Disease; Visit Provider Internal Medicine Cardiovascular Disease
DX: I25.10 Atherosclerotic heart disease of native coronary artery without angina pectoris (principal); I10 Essential (primary) hypertension; E78.5 Hyperlipidemia, unspecified; R06.09 Other forms of dyspnea; Z86.79 Personal history of other diseases of the circulatory system
CPT/HCPCS: 36415; 80053; 80061; 82550

== ENCOUNTER → 2024-08-11 | Outpatient (CLI) | payer MEDICARE, SELFPAY ==
--- NOTE | 2024-08-11 06:54 | ECHOCS_ITS ---
Reason For Study: ASHD Procedure This was a 2D Doppler, Color Flow transthoracic echocardiogram. The study was technically difficult. Due to poor accoustic windows. Contrast injection was performed. Exam performed in department. Left Ventricle Normal LV size. Mild concentric left ventricular hypertrophy. The left ventricular ejection fraction is 60 %. Normal diastology for age. Right Ventricle Normal right ventricle. Atria The left and right atria are normal. Mitral Valve Trivial mitral valve insufficiency. Tricuspid Valve Trivial tricuspid valve insufficiency. Unable to estimate RV systolic pressure due to insufficient tricuspid regurgitant envelope. Aortic Valve Trisinus/trileaflet aortic valve. Mild diffuse aortic valve thickening. Aortic sclerosis, no stenosis. Pulmonic Valve The pulmonic valve is not well visualized. Trivial eccentric pulmonic valve insufficiency. Great Vessels Mildly dilated ascending aorta. Pericardium/Pleural No pericardial effusion. Medication Diluted definity 3.0ml given slow IV push to enhance endocardial definition. MMode/2D Measurements & Calculations LVIDd: 5.5 cm IVSd: 1.2 cm LVOT diam: 2.2 cm LVIDs: 3.5 cm LVPWd: 1.1 cm RVDd: 2.5 cm FS: 36.2 % LVOT area: 3.9 cm2 Ao root diam: 3.2 cm asc Aorta Diam: 4.2 cm LAV(MOD-bp): 47.0 ml LA dimension: 3.9 cm LAV(MOD-bp) Indexed: 24.0 ml/m2 LAV(MOD-sp2): 47.9 ml LAV(MOD-sp4): 46.6 ml SV(MOD-sp4): 41.5 ml LVAd ap4: 24.2 cm2 LVAd ap2: 20.1 cm2 LVLd ap4: 7.6 cm LVLd ap2: 7.5 cm EDV(MOD-sp4): 64.0 ml EDV(MOD-sp2): 47.0 ml EDV(sp4-el): 65.5 ml EDV(sp2-el): 46.1 ml LVAs ap4: 12.1 cm2 LVAs ap2: 11.3 cm2 LVLs ap4: 6.0 cm LVLs ap2: 6.2 cm ESV(MOD-sp4): 22.4 ml ESV(MOD-sp2): 17.9 ml ESV(sp4-el): 20.7 ml ESV(sp2-el): 17.4 ml EF(MOD-sp4): 65.0 % EF(MOD-sp2): 62.0 % EF(sp4-el): 68.3 % SV(MOD-sp2): 29.2 ml SV(sp4-el): 44.8 ml LA A4 area: 18.1 cm2 TAPSE: 1.7 cm RA A4 area: 12.1 cm2 Time Measurements MV dec time: 0.23 sec Doppler Measurements & Calculations MV E max all: 62.9 cm/sec Lat Peak E' All: 11.7 cm/sec Med Peak E' All: 9.2 cm/sec MV A max all: 68.0 cm/sec E/E' lat: 5.4 E/E' med: 6.9 MV E/A: 0.93 MV V2 max: 77.2 cm/sec MV P1/2t max all: 63.1 cm/sec Ao V2 max: 113.3 cm/sec MV max P.4 mmHg MV P1/2t: 67.1 msec Ao max P.1 mmHg MV V2 mean: 46.6 cm/sec MV dec slope: 275.4 cm/sec2 Ao V2 mean: 81.9 cm/sec MV mean P.99 mmHg Ao mean P.0 mmHg MV V2 VTI: 21.3 cm MVA(P1/2t): 3.3 cm2 Ao V2 VTI: 22.3 cm MVA(VTI): 3.5 cm2 AV (velocity ratio): 0.88 SHYAM(I,D): 3.4 cm2 SHYAM(V,D): 3.3 cm2 LV V1 max: 95.9 cm/sec SV(LVOT): 75.6 ml PA V2 max: 82.8 cm/sec LV V1 max P.7 mmHg PA max PG (full): 1.1 mmHg LV V1 mean P.9 mmHg LV V1 mean: 62.8 cm/sec LV V1 VTI: 19.5 cm PI dec slope: 136.1 cm/sec2 ECHO/Echo Complete W/ Contrast Interpretation Summary Mild concentric left ventricular hypertrophy. The left ventricular ejection fraction is 60 %. Aortic sclerosis, no stenosis. Mildly dilated ascending aorta. Ordering Physician: Enedina Gallagher Referring Physician: Damian Hardy Performed By: Delia Parham RVT, RDCS and Student
--- NOTE | 2024-08-12 16:16 | STRESSREP ---
Stress Test Report Date: 08/11/2024 Procedure: Exercise tolerance test/imaging study Indications: Chest pain Consent: Per the patient Procedure: The patient exercised on a Matt protocol for 6 minutes achieving a peak heart rate of 142 bpm (95% predicted maximal heart rate) with a peak blood pressure 180/72 mmHg and a peak MET capacity of 7.0 METs. The baseline ECG demonstrated sinus rhythm. The peak exercise ECG demonstrated no ischemic changes. There were no cardiac dysrhythmias pretest, during exercise, or recovery. The functional capacity was considered average. There was no complaint of chest discomfort during exercise or recovery. However he had shortness of breath with exercise with wheezing.. The examination was discontinued secondary to dyspnea. The patient was injected with 11.3 mCi of technetium 99m Cardiolite and subsequently rest SPECT Cardiolite nuclear imaging was obtained in the horizontal long, vertical long, and short axis views. Post-exercise, the patient was injected with 33.7 mCi of technetium 99m Cardiolite and subsequently stress SPECT Cardiolite nuclear imaging was obtained in the horizontal long, vertical long, and short axis views. A gated Cardiolite study at peak stress was obtained. Rest and stress SPECT Cardiolite nuclear imaging status post realignment, normalization, and attenuation correction, demonstrates the appearance of relative uniform tracer uptake and myocardial perfusion appearing within normal limits. There is end systolic thickening and brightening. The gated Cardiolite study demonstrates myocardial thickening and inward wall motion. The reported LVEF is 75%. Impression: 1. Technically adequate (percent predicted maximal heart rate greater than 85%) exercise tolerance test 2. Peak exercise ECG with no ischemic changes 3. Shortness of breath with exercise with expiratory wheezing. Recommend pulmonary workup if clinically indicated 4. Rest and stress SPECT Cardiolite nuclear imaging demonstrate relative uniform tracer uptake and myocardial perfusion appearing within normal limits. 5. The gated Cardiolite study reports an LVEF of 75%. This note was generated with [employer] software. It may contain incorrect words, spelling, and punctuation that were not noted in checking the note before signing.
== END | disposition home or self-care (01) ==
LOC: CVS 06:53
PROVIDERS: PCP Internal Medicine; Referring Provider Internal Medicine Cardiovascular Disease; Visit Provider Internal Medicine Cardiovascular Disease
DX: R07.9 Chest pain, unspecified (principal); I25.10 Atherosclerotic heart disease of native coronary artery without angina pectoris; E78.5 Hyperlipidemia, unspecified; R06.00 Dyspnea, unspecified; I10 Essential (primary) hypertension
CPT/HCPCS: 78452; 93017; 93306; A9500; Q9957; A4216; C8929

== ENCOUNTER → 2025-07-01 | Outpatient (CLI) | payer MEDICARE, SELFPAY | END | disposition home or self-care (01) | LOC: PSN 12:43 | PROVIDERS: PCP Internal Medicine; Referring Provider Nurse Practitioner Family; Visit Provider Nurse Practitioner Family | DX: J45.30 Mild persistent asthma, uncomplicated (principal) | CPT/HCPCS: 94060; 94726; 94729 ==

== ENCOUNTER → 2025-09-14 | Outpatient (CLI) | payer MEDICARE, SELFPAY ==
--- NOTE | 2025-09-14 12:49 | ECHOCS_ITS ---
Reason For Study Reason For Study: ASHD/CAD Procedure This was a 2D Doppler, Color Flow transthoracic echocardiogram. The study was technically difficult. Contrast injection was performed. Exam performed in department. Left Ventricle Normal LV size. Mild concentric left ventricular hypertrophy. The left ventricular ejection fraction is 55 %. Stage 1 diastolic dysfunction. Right Ventricle Normal right ventricle. Atria The left and right atria are normal. Mitral Valve Trivial mitral valve insufficiency. Tricuspid Valve Trivial tricuspid valve insufficiency. Normal pulmonary artery pressure. Aortic Valve Mild diffuse aortic valve calcification. Aortic sclerosis, no stenosis. Pulmonic Valve The pulmonic valve is not well visualized. Trivial pulmonic valve insufficiency. Great Vessels Normal sized aortic root. Pericardium/Pleural No pericardial effusion. Medication 22 gauge I.V. with prn adaptor inserted into right arm. Diluted definity 2ml given slow IV push to enhance endocardial definition. MMode/2D Measurements & Calculations LVIDd: 4.8 cm IVSd: 1.2 cm Ao root diam: 3.4 cm LVIDs: 3.4 cm LVPWd: 1.0 cm RVDd: 3.6 cm FS: 28.6 % LAV(MOD-bp): 42.4 ml LVAd ap4: 30.9 cm2 SV(MOD-sp4): 51.1 ml LAV(MOD-bp) Indexed: 21.2 ml/m2 LVLd ap4: 7.9 cm SI(MOD-sp4): 25.6 ml/m2 LAV(MOD-sp2): 48.6 ml EDV(MOD-sp4): 99.5 ml LAV(MOD-sp4): 34.7 ml EDV(sp4-el): 103.2 ml LVAs ap4: 21.0 cm2 LVLs ap4: 7.2 cm ESV(MOD-sp4): 48.4 ml ESV(sp4-el): 51.6 ml EF(MOD-sp4): 51.4 % EF(sp4-el): 50.0 % SV(sp4-el): 51.6 ml LA A4 area: 15.2 cm2 LA dimension(2D): 3.9 cm RA A4 area: 11.6 cm2 TAPSE: 1.7 cm Time Measurements MV dec time: 0.26 sec Doppler Measurements & Calculations MV E max all: 62.3 cm/sec Lat Peak E' All: 12.1 cm/sec Med Peak E' All: 8.6 cm/sec MV A max lal: 85.0 cm/sec E/E' lat: 5.2 E/E' med: 7.2 MV E/A: 0.73 MV V2 max: 100.9 cm/sec MV P1/2t max all: 65.0 cm/sec Ao V2 max: 107.5 cm/sec MV max P.1 mmHg MV P1/2t: 83.7 msec Ao max P.6 mmHg MV V2 mean: 50.2 cm/sec MV dec slope: 227.7 cm/sec2 Ao V2 mean: 77.6 cm/sec MV mean P.2 mmHg MVA(P1/2t): 2.6 cm2 Ao mean P.7 mmHg MV V2 VTI: 24.1 cm Ao V2 VTI: 22.8 cm AV (velocity ratio): 0.84 LV V1 max: 85.1 cm/sec TR max all: 235.9 cm/sec LV V1 max P.9 mmHg TR max P.3 mmHg LV V1 mean P.7 mmHg LV V1 mean: 61.4 cm/sec LV V1 VTI: 19.1 cm ECHO/Echo Complete W/ Contrast Interpretation Summary Mild concentric left ventricular hypertrophy. The left ventricular ejection fraction is 55 %. Stage 1 diastolic dysfunction. Aortic sclerosis, no stenosis. Ordering Physician: Enedina Gallagher Referring Physician: Enedina Gallagher Performed By: Nelson Whipple RCS
== END | disposition home or self-care (01) ==
LOC: CVS 12:48
PROVIDERS: PCP Internal Medicine; Referring Provider Internal Medicine Cardiovascular Disease; Visit Provider Internal Medicine Cardiovascular Disease
DX: I25.10 Atherosclerotic heart disease of native coronary artery without angina pectoris (principal); R06.09 Other forms of dyspnea
CPT/HCPCS: 93306; Q9957; A4216; C8929